=== PATIENT | male | born 1960 | race Caucasian/White ===

== ENCOUNTER 2020-05-16 11:28 | Outpatient (REF) | payer MEDICAID, SELFPAY ==
[2020-05-16 12:34] LABS: Alanine Aminotransferase 13 U/L (0-40); Albumin Level 3.8 g/dL (3.5-5.0); Alkaline Phosphatase 69 U/L (39-117); Anion Gap 11 (12-20); Aspartate Amino Transferase 14 U/L (5-37); Bilirubin Direct < 0.2 mg/dL (0.0-0.5); Bilirubin Total 0.2 mg/dL (0.0-1.0); Blood Urea Nitrogen 19 mg/dL (9-16); Calcium 9.1 mg/dL (8.4-10.2); Carbon Dioxide 34 mmol/L (22-29); Chloride 97 mmol/L (96-108); Estimated Glomerular Filt Rate > 60; Glucose Random 89 mg/dL (60-115); Sodium 138 mmol/L (135-145); Total Protein 7.8 g/dL (6.5-8.0)
[2020-05-16 12:55] LABS: T4 Thyroxine 7.1 ug/dL (4.5-12.0); Thyroid Stimulating Hormone 2.65 uIU/mL (0.32-4.0); Vitamin D 25-OH Total 34.7 ng/mL (>30)
[2020-05-16 13:43] LABS: Folate 11.2 ng/mL (> or = 4.0); Vitamin B12 300 pg/mL (200-900)
== END 2020-05-16 11:29 | disposition home or self-care (01) ==
LOC: HO.LAB 11:28
PROVIDERS: PCP Student in an Organized Health Care Education/Training Program; Visit Provider Psychiatry & Neurology Neurology
DX: G31.84 Mild cognitive impairment of uncertain or unknown etiology (principal)
CPT/HCPCS: 80053; 80076; 82248; 82306; 82607; 82746; 84436; 84443

== ENCOUNTER 2020-08-10 13:19 | Outpatient (REF) | payer MEDICAID, SELFPAY ==
--- NOTE | ~2020-08-10 | XR_ITS ---
EXAMINATION: XR KNEE, RIGHT CLINICAL INFORMATION: Pain COMPARISON: None TECHNIQUE: Four views of the right knee. FINDINGS: Bones and soft tissues are normal. No fracture or joint effusion. Alignment is anatomic. Joint spaces are well maintained. No abnormal soft tissue calcification. XR/XR knee RT 4V IMPRESSION: Normal right knee.
[2020-08-10 14:58] LABS: Alanine Aminotransferase 13 U/L (0-40); Albumin Level 3.8 g/dL (3.5-5.0); Alkaline Phosphatase 79 U/L (39-117); Anion Gap 14 (12-20); Aspartate Amino Transferase 12 U/L (5-37); Bilirubin Direct < 0.2 mg/dL (0.0-0.5); Bilirubin Total < 0.2 mg/dL (0.0-1.0); Blood Urea Nitrogen 21 mg/dL (9-16); Calcium 9.1 mg/dL (8.4-10.2); Carbon Dioxide 31 mmol/L (22-29); Chloride 98 mmol/L (96-108); Cholesterol 148 mg/dL; Estimated Glomerular Filt Rate > 60; Glucose Random 108 mg/dL (60-115); HDL Cholesterol 33 mg/dL; LDL Cholesterol Calculated 81 mg/dl; Potassium 3.9 mmol/L (3.3-5.1); Sodium 139 mmol/L (135-145); Total Protein 7.8 g/dL (6.5-8.0); Triglycerides 171 mg/dL
== END 2020-08-10 13:20 | disposition home or self-care (01) ==
LOC: HO.LAB 13:19
PROVIDERS: PCP Student in an Organized Health Care Education/Training Program; Visit Provider Student in an Organized Health Care Education/Training Program
DX: M25.561 Pain in right knee (principal); I10 Essential (primary) hypertension
CPT/HCPCS: 36415; 73564; 80048; 80061; 80076

== ENCOUNTER → 2022-07-02 11:04 | Outpatient (REF) | payer MEDICAID, SELFPAY ==
--- NOTE | 2022-07-02 11:09 | HM_ITS ---
* Total monitoring time approximately 1 day. * Underlying rhythm is sinus. Average ventricular rate 57. Range 40 to 91/Min. * About 71% the time, rate < 60/Min. * Very rare supraventricular/ventricular ectopy. Minimal burden. * No significant pauses or AV blocks. * Patient marker used once, in association with sinus rhythm. * No diary submitted. MTDD
== END ==
LOC: HO.CARD 11:04
PROVIDERS: PCP Student in an Organized Health Care Education/Training Program; Visit Provider Family Medicine
DX: R42 Dizziness and giddiness (principal)
CPT/HCPCS: 93225

== ENCOUNTER 2023-04-02 10:08 | Outpatient (REF) | payer MEDICAID, SELFPAY ==
[2023-04-02 14:46] LABS: Alanine Aminotransferase 24 U/L (0-40); Albumin Level 3.6 g/dL (3.5-5.0); Alkaline Phosphatase 73 U/L (39-117); Anion Gap 13 (12-20); Aspartate Amino Transferase 18 U/L (5-37); Bilirubin Direct 0.2 mg/dL (0.0-0.5); Bilirubin Total 0.2 mg/dL (0.0-1.0); Blood Urea Nitrogen 13 mg/dL (9-16); Calcium 9.7 mg/dL (8.4-10.2); Carbon Dioxide 32 mmol/L (22-29); Chloride 99 mmol/L (96-108); Cholesterol 174 mg/dL (<200); Estimated Glomerular Filt Rate > 60; Glucose Fasting 85 mg/dL (60-99); HDL Cholesterol 31 mg/dL (>40); LDL Cholesterol Calculated 102 mg/dL (<100); Potassium 3.9 mmol/L (3.3-5.1); Sodium 140 mmol/L (135-145); Total Protein 8.3 g/dL (6.5-8.0); Triglycerides 209 mg/dL (<150)
[2023-04-03 08:11] LABS: ~HepC Num1 0.19 S/CO (0.00-0.79); ~Hepatitis C Antibody Nonreactive (Nonreactive)
[2023-04-05 21:48] LABS: HIV RNA PCR Qn Copies Not Detected Copies/mL; HIV RNA PCR Qn Log Copies Not Detected Log cps/mL
== END 2023-04-02 10:09 | disposition home or self-care (01) ==
LOC: HO.CHCLDS 10:08
PROVIDERS: Visit Provider Student in an Organized Health Care Education/Training Program
DX: Z00.00 Encounter for general adult medical examination without abnormal findings (principal); I10 Essential (primary) hypertension
CPT/HCPCS: 36415; 80048; 80061; 80076; 86803; 87536; 87900

== ENCOUNTER 2023-11-27 10:08 | Outpatient (REF) | payer MEDICAID, SELFPAY ==
[2023-11-27 14:37] LABS: Estimated Average Glucose 128 mg/dL; Hemoglobin A1C 149.2817 umol/L; Hemoglobin A1c % 6.1 % (<6.0)
[2023-11-27 14:52] LABS: Anion Gap 12 (12-20); Blood Urea Nitrogen 13 mg/dL (9-16); Calcium 9.7 mg/dL (8.4-10.2); Carbon Dioxide 32 mmol/L (22-29); Chloride 99 mmol/L (96-108); Cholesterol 138 mg/dL (<200); Estimated Glomerular Filt Rate > 60; Glucose Fasting 89 mg/dL (60-99); HDL Cholesterol 31 mg/dL (>40); LDL Cholesterol Calculated 77 mg/dL (<100); Potassium 3.9 mmol/L (3.3-5.1); Sodium 139 mmol/L (135-145); Triglycerides 153 mg/dL (<150)
[2023-11-29 02:24] LABS: Prolactin 12.4 ng/mL (2.0-18.0)
== END 2023-11-27 10:09 | disposition home or self-care (01) ==
LOC: HO.CHCLDS 10:08
PROVIDERS: Visit Provider Registered Nurse Community Health
DX: F25.1 Schizoaffective disorder, depressive type (principal)
CPT/HCPCS: 36415; 80048; 80061; 83036; 84146

== ENCOUNTER → 2024-01-01 10:11 | Outpatient (REF) | payer MEDICAID, SELFPAY ==
--- NOTE | 2024-01-01 10:15 | CA_ITS ---
Transthoracic Echocardiogram Patient (Last, First, Middle): Ryan Chavez, Gender: Male Date of : 1960 Age: 63 Procedure Date: 01/01/2024 Procedure Type: Transthoracic Echocardiogram Location: OP Height: 172.72 cm Weight: 117.94 kg BSA: 2.29 m2 Heart Rate: 63 bpm BP: 120 / 75 mmHg Jigman: BENITA Referring MD: Swathi Christianson MD Symptoms: NEW HEART MURMUR R01.1 HTN I10 Study Quality: Fair ECG Rhythm: Sinus Conclusions: - The left ventricular systolic function is normal. The visually estimated ejection fraction is between 65-70%. - No obvious valvular pathology seen on this study. - There is mild dilatation of the ascending aorta measuring 4.20 cm. Findings Left Ventricle Normal left ventricular cavity size. There is mildly increased left ventricular wall thickness. The left ventricular systolic function is normal. The visually estimated ejection fraction is between 65-70%. There is no evidence of regional wall motion abnormalities. Diastolic function is normal for age. Right Ventricle Normal right ventricular cavity size and systolic function. Atria Both atria are normal in size. Aortic Valve The aortic valve was not well visualized. There is no aortic valve stenosis. There is trace (trivial) aortic valve regurgitation. Mitral Valve The mitral valve appears normal. There is no mitral valve regurgitation. There is no mitral valve stenosis. Pulmonic Valve The pulmonic valve is likely normal. Tricuspid Valve There is trace tricuspid valve regurgitation. There is no evidence of pulmonary hypertension. Great Vessels The aortic arch is normal in size. There is mild dilatation of the ascending aorta measuring 4.20 cm. Small plaque is seen in the sino tubular ridge. Venous The inferior vena cava is mildly dilated and collapses greater than 50% with inspiration. Pericardium/Pleural There is no evidence of pericardial effusion. Prior Study Comparison No prior study available for comparison. Recommendations, Care & Conclusions No obvious valvular pathology seen on this study. Measurements 2D Linear Measurements IVSd: 1.26 0.6-0.9/0.6-1.0 cm LVIDd: 4.40 3.9-5.3/4.2-5.9 cm LVIDd Index: 1.92 2.4-3.2/2.2-3.1 cm/m2 LVIDs: 2.59 2.0-3.6 cm LVPWd: 1.34 0.7-1.1 cm LA Diam: 3.30 2.7-3.8/3.0-4.0 cm LAIDs Index: 1.44 1.5-2.3 cm/m2 LV Mass: 268.13 67-162/88-224 g LV Mass Index: 117.09 43-95/49-115 g/m2 LVOT Diam: 2.00 3.0+(-)1.3 cm 2D Systolic Function EF 4C: 60.60 >55% EF 2C: 59.10 >55% EF BiP: 59.40 >55% Mitral Valve MV Pk E: 0.77 MV PK A: 0.72 MV Decel Time: 247.00 E/A: 1.10 E'Lateral: 11.10 E'Medial: 8.16 E/E' Med: 9.40 E/E' Lat: 6.90 PHT: 72.00 MVA PHT: 3.06 Decel [place]: 3.10 Aortic Valve AoV Pk Wally: 1.59 AoV Mn Wally: 1.10 AoV VTI: 0.33 AoV Pk Grad: 10.00 Aov Mn Grad: 6.00 JAMES Cont.VTI: 2.49 LVOT LVOT Pk Wally: 1.40 LVOT Mn Wally: 0.90 LVOT VTI: 0.26 LVOT Pk Grad: 8.00 LVOT Mn Grad: 4.00 LVOT Diam: 2.00 LVOT Area: 3.14 Diastolic Function MV Pk E: 0.77 MV Pk A: 0.72 E/A: 1.10 E'Medial: 8.16 E/E' Med: 9.40 E' Laterial: 11.10 E/E' Lat: 6.90 Right Ventricle TAPSE (mm): 16.90 TVS' Wally: 16.00 Tricuspid Valve RA Press: 8.00 Great Vessels Aorta Sinus of Valsalva: 3.60 2.0-3.5 cm Ao Asc: 4.20 2.1-3.4 cm Ao Arch: 3.70 Pulmonary Valve PV Pk Wally: 1.17 Peak PV Grad: 5.00 Updated in Other Vendor System with Status of Final Aristeo Ramos MD electronically signed on 01/02/2024 3:10:02 PM with status of Final
== END ==
LOC: HO.CARD 10:11
PROVIDERS: PCP Student in an Organized Health Care Education/Training Program; Visit Provider Pediatrics
DX: R01.1 Cardiac murmur, unspecified (principal); I10 Essential (primary) hypertension
CPT/HCPCS: 93306

== ENCOUNTER → 2024-01-01 10:15 | Outpatient (BNV) | payer MEDICAID, SELFPAY | PROVIDERS: PCP Student in an Organized Health Care Education/Training Program; Visit Provider Internal Medicine | DX: R01.1 Cardiac murmur, unspecified (principal) | CPT/HCPCS: 93306 ==

== ENCOUNTER 2024-12-23 10:10 | Outpatient (REF) | payer MEDICAID, SELFPAY ==
--- OUTSIDE RECORDS SUMMARY | 2024-12-23 10:26 | XMS_ITS | Clinical Summary ---
Author Organization [employer] Address [address] [place] [address] Care Team Providers Care Surg Physician Asst Name Role Phone Radha Freedman MD Primary Care Provider [phone] Allergies No known active allergies Medications * This document contains information received from the source organization and may not represent a complete record from that organization. risperiDONE (RisperDAL) 1 MG tablet take 1 Tablet by Oral route 2 times every day 2 Active folic acid (Folvite) 1 MG tabletIndications :Dizziness of unknown etiology TAKE 1 TABLET BY MOUTH IN THE MORNING 90 tablet 1 3 Active sertraline (Zoloft) 100 MG tablet Take 1.5 tablets (150 mg) by mouth in the morning. 60 tablet 3 3 Active D3-1000 25 MCG (1000 UT) capsuleIndication s:Vitamin D deficiency TAKE 1 CAPSULE BY MOUTH EVERY DAY 90 capsule 3 4 Active traZODone (Desyrel) 50 MG tablet Take 50 mg by mouth at bedtime. 4 Active benztropine (Cogentin) 0.5 MG tablet Take 1 tablet by mouth Once per day. 5 Active haloperidol (Haldol) 2 MG tablet Take 1 tablet by mouth at bedtime. 5 Active pantoprazole (ProtoNix) 40 MG EC tablet Take 1 tablet by mouth Once per day. 5 Active simvastatin (Zocor) 10 MG tabletIndications :Primary hypertension TAKE 1 TABLET BY MOUTH EVERY DAY IN THE EVENING 90 tablet 1 5 Active hydroCHLOROthiazi de (HYDRODiuril) 25 MG tabletIndications :Primary hypertension TAKE 1 TABLET BY MOUTH EVERY DAY IN THE MORNING 90 tablet 1 Active Active Problems Problem Noted Date Diagnosed Date Primary hypertension 08/18/2022 Dizziness of unknown etiology 06/20/2022 Assessment & Plan (07/22/2022 2:09 PM EST): Patient with cerumen impactation on examination and description of vertigo, at this point will start meclizine, start workout and will send to testing. Recommended PCP followup and workup. 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, presenile onset, uncomplicated 12/05/2015 Schizoaffective schizophrenia 12/05/2015 Mixed anxiety and depressive disorder 12/05/2015 Gastroesophageal reflux disease without esophagi tis 12/05/2015 Encounters Date Type Department Care Team Description 10/17/2024 Refill [facility] [address] [place] [address] Radha Freedman MD Primary hypertension from Last 3 Months Immunizations Immunization Administration Dates Next Due Influenza injectable quadriv alent IIV4 with preservative 03/07/2016 Tdap 03/07/2016 Social History Tobacco Use Types Packs/Day Years Used Date Smoking Tobacco: Never Passive Smoke Exposure: Never Smokeless Tobacco: Never Tobacco Cessation:Counseling Given: Not Answered Alcohol Use Standard Drinks/Week Comments Never 0 (1 standard drink = 0.6 oz pur e alcohol) Housing Stability Answer Date Recorded What is your housing situation today? I have kaelaradha cowart 04/13/[address] you li ve. Do you have problems with any of the following? None of the above 04/13/2024 Food Insecurity Answer Date Recorded Within the past 12 months, y ou worried that your food would run out before you got money to buy more: Never True 07/13/2024 Within the past 12 months,th e food you bought just didn't last and you didn't have enough money to get more: Never True Transportation Answer Date Recorded In the past 12 months, has l ack of transportation kept you from medical appts, meetings, work or from getting things needed for daily living? No 04/13/2024 Utilities Answer Date Recorded In the past 12 months, has t he electric, gas, oil or water company threatened to shut off services in your home? No 04/13/2024 Internet Access Answer Date Recorded Internet Access Q1 No 07/13/2024 Internet Access Q2 I do not want or need it 06/19 Sex and Gender Information Value Date Recorded Sex Assigned at Male 03/17/2022 10:30 AM EDT Legal Sex Male 10:30 AM EDT Gender Identity Male 03/17/2022 10:30 AM EDT Sexual Orientation Straight 03/17/2022 10 :30 AM EDT Last Filed Vital Signs Vital Sign Reading Time Taken Comments Blood Pressure 132/77 07/13/2024 10:11 AM EST Pulse 72 07/13/2024 10:11 AM EST Temperature 36.2 C (97.1 F) 07/13/2024 10:11 AM EST Respiratory Rate 20 07/13/2024 10:11 AM EST Oxygen Saturation 97% 07/13/2024 10:11 AM EST Inhaled Oxygen Concentration - - Weight 122 kg (268 lb) 07/13/2024 10:11 AM EST Height 165.7 cm (5' 5.25 ) 07/13/2024 10:[address] Body Mass Index 44.26 07/13/2024 10:11 AM EST Plan of Treatment Health Maintenance Due Date Last Done Comments CT Colonography 1960 Colonoscopy 1960 Colorectal Cancer Screening 1960 Depression Screening 1960 FIT DNA/Cologuard 1960 FIT 1960 FOBT 1960 HIV Screening 1960 Sigmoidoscopy 1960 Pneumococcal Vaccine: 50+ Years (1 of 1 - PCV) 02/06/2010 Zoster Vaccines (1 of 2) 02/06/2010 RSV Patients and Patients Aged 60 years or older (1 - Risk 60-74 years 1-dose series) 2020 Influenza Vaccine (#1) 2025 03/07/2016 Alcohol/Substance Use Screening 07/13/2025 07/13/2024 COVID-19 Vaccine (1 - 2023-2 5 season) 2025 Postponed from 01/16 (Patient Refused) Disability Screening 07/13/2025 07/13/2024 SDOH Screening 07/13/2025 07/13/2024 Tobacco Screening 07/13/2025 07/13/2024 DTaP/Tdap/Td Vaccines (2 - T d or Tdap) 03/07/2026 03/07/2016 Lipid Panel 04/02/2028 04/02/2023, 08/10/2020 Hepatitis C Screening Completed 04/02/2023 HIB Vaccines Aged Out No longer eligi ble based on patient's age to complete this topic HPV Vaccines Aged Out No longer eligi ble based on patient's age to complete this topic Hepatitis A Vaccines Aged Out No long er eligible based on patient's age to complete this topic Hepatitis B Vaccines Aged Out No long er eligible based on patient's age to complete this topic IPV Vaccines Aged Out No longer eligi ble based on patient's age to complete this topic Meningococcal B Vaccine Aged Out No l onger eligible based on patient's age to complete this topic Meningococcal Vaccine Aged Out No rubi wale eligible based on patient's age to complete this topic RSV under 20 months Aged Out No longe r eligible based on patient's age to complete this topic Rotavirus Vaccines Aged Out No longer eligible based on patient's age to complete this topic Procedures Procedure Name Priority Date/Time Associated Diagnosis Comments HEPATITIS C AB W/REFL TO HCV RNA, QN, PCR Routine 04/02/2023 10:12 AM EST PE (physical exam), annual LIPID PANEL, STANDARD Routine 04/02/2023 10:12 AM EST Primary hypertension from Last 3 Months or Most Recently Relevant to Health Maintenance Results * Hepatitis C Antibody with Reflex to HCV, RNA, Quantitative, Real-Time PCR (04/02/2023 10:12 AM EST) Hepatitis C Antibody Nonreactive Nonreactive [facility] Comment:Antibodies to HCV no t detected; does not exclude early acuteHCV infection. Blood Venous blood specimen / Unknown 04/02/2023 10:12 AM EST 04/02/2023 2:21 PM EST us Radha Freedman MD LAB BLOOD ORDERABLES Final Resul t [facility] [address] [place] [address] [phone] * (ABNORMAL) Lipid Panel, Standard (04/02/2023 10:12 AM EST) Triglycerides 209(H) <150 mg/dL [facility] Comment:Desirable Triglyceri de: less than 150 mg/dLBorderline High Triglyceride 150-199 mg/dLHigh Triglyceride: 200-499 mg/dLVery High Triglyceride: greater than or equal to 5OO mg/dL Cholesterol 174 <200 mg/dL [facility] Comment:Desirable Cholestero l: less than 200 mg/dLBorderline High Cholesterol: 200-239 mg/dLHigh Cholesterol: greater than 239 mg/dL LDL Cholesterol Calculated 102(H) <100 mg/dL [facility] Comment:Desirable LDL: less than 100 mg/dLNear Optimal/Above Optimal LDL: 110- 129 mg/dLBorderline High LDL: 130-159 mg/dLHigh LDL: 160-189 mg/dLVery High LDL: greater than or equal to 190 mg/dL HDL Cholesterol 31(L) >40 mg/dL [facility] Comment:Desirable HDL: great er than 40 mg/dL Note: This HDL assay may give artificially low results in patients with liver disease. Blood Venous blood specimen / Unknown 04/02/2023 10:12 AM EST 04/02/2023 2:21 PM EST us Radha Freedman MD LAB BLOOD ORDERABLES Final Resul t [facility] [address] [place] [address] [phone] from Last 3 Months or Most Recently Relevant to Health Maintenance Insurance [facility] C3 Care Teams Surg Physician Asst Relationship Specialty Start Date End Date Radha Freedman MD [address] [place] [id number] PCP - General Family Medicine 12/05/15
[2024-12-23 15:14] LABS: Hemoglobin A1C 151.1001 umol/L; Total Hemoglobin (HGBA1C) 3330.8136 umol/L
[2024-12-23 15:40] LABS: Alanine Aminotransferase 17 U/L (0-40); Albumin Level 3.6 g/dL (3.5-5.0); Alkaline Phosphatase 69 U/L (39-117); Aspartate Amino Transferase 28 U/L (5-37); Cholesterol 142 mg/dL (<200); HDL Cholesterol 30 mg/dL (>40); Total Protein 7.8 g/dL (6.5-8.0); Triglycerides 194 mg/dL (<150)
[2024-12-23 15:41] LABS: Anion Gap 12 (12-20); Blood Urea Nitrogen 13 mg/dL (9-16); Calcium 9.2 mg/dL (8.4-10.2); Carbon Dioxide 30 mmol/L (22-29); Chloride 101 mmol/L (96-108); Estimated Glomerular Filt Rate > 60; Potassium 3.6 mmol/L (3.3-5.1); Sodium 139 mmol/L (135-145)
== END 2024-12-23 10:11 | disposition home or self-care (01) ==
LOC: HO.CHCLDS 10:10
PROVIDERS: Referring Provider Registered Nurse Community Health; Visit Provider Student in an Organized Health Care Education/Training Program
DX: F25.1 Schizoaffective disorder, depressive type (principal); I10 Essential (primary) hypertension
CPT/HCPCS: 36415; 80048; 80061; 80076; 83036; 84146